=== PATIENT | male | born 1950 | race Caucasian/White ===

== ENCOUNTER 2016-11-22 15:18 | Emergency (ER) | payer OTHER ==
[~2016-11-22] VITALS: Ht 179.1 cm; Wt 97.5 kg
[2016-11-22] MEDS ORDERED: FISH OIL 1,0001 EAC2 PO (16:11)
[2016-11-22] MEDS ORDERED: ASPIRIN EC81 M1 PO (16:11)
[2016-11-22] MEDS ORDERED: VITAMIN D2000 UNI1 PO (16:11)
[2016-11-22] MEDS ORDERED: POTASSIUM99 M1 PO (16:12)
[2016-11-22] MEDS ORDERED: CALCIUM CARBON600 M1 PO (16:12)
[2016-11-22] MEDS ORDERED: VITAMIN B-121000 MC3 PO (16:12)
[2016-11-22] MEDS ORDERED: MAGNESIUM400 M1 PO (16:12)
[2016-11-22] MEDS ORDERED: SAW PALMETTO450 M1 PO (16:13)
[2016-11-22] MEDS ORDERED: MULTI-DAY VITA1 EACH PO (16:13)
--- NOTE | 2016-11-22 17:09 | ED NOSE COMPLAINT ---
History of Present Illness General Chief Complaint: Epistaxis/Nasal Foreign Body Stated Complaint: "PROFUSE NOSEBLEED", DIFF BREATHING ALSO Source: patient, family, old records Exam Limitations: no limitations Vital Signs & Intake/Output Vital Signs & Intake/Output Vital Signs Date Time Temp Pulse Resp B/P Pulse O2 O2 Flow FiO2 Ox Delivery Rate 11/22 1521 97.1 79 16 202/109 98 Room Air Allergies Coded Allergies: latex (RASH 11/22/16) pollen extracts (UNKNOWN 11/04/15) Reconcile Medications Aspirin (Ecotrin*) 81 MG TABLET.DR 1 TAB PO DAILY HEART/BLOOD (Reported) Calcium (Elemental-Fr Calcarb) (Calcium Carbonate) (Unknown Strength) TABLET ( Unknown Dose) PO DAILY SUPPLEMENT (Reported) Cephalexin (Keflex) 500 MG CAPSULE 1 CAP PO TID nasal packing Cholecalciferol (Vitamin D3) (Vitamin D) (Unknown Strength) TABLET (Unknown Dose) PO DAILY SUPPLEMENT (Reported) Cyanocobalamin (Vitamin B-12) (Unknown Strength) TABLET (Unknown Dose) PO DAILY SUPPLEMENT (Reported) Magnesium Oxide (Magnesium) (Unknown Strength) CAPSULE (Unknown Dose) PO DAILY SUPPLEMENT (Reported) Multivitamin (Multi-Day Vitamins) 1 EACH TABLET 1 TAB PO DAILY SUPPLEMENT ( Reported) [place]-3/Dha/Epa/Fish Oil (Fish Oil 1,000 MG Softgel) (Unknown Strength) CAPSULE (Unknown Dose) PO DAILY SUPPLEMENT (Reported) Potassium Gluconate (Potassium) (Unknown Strength) TABLET (Unknown Dose) PO DAILY SUPPLEMENT (Reported) Saw [place] Fruit (Saw [place]) (Unknown Strength) CAPSULE (Unknown Dose) PO DAILY SUPPLEMENT (Reported) Tramadol HCl (Ultram) 50 MG TABLET 1-2 TAB PO Q6PRN PRN severe pain Triage Note: NOSE BLEED FOR OVER ONE HOUR. PT STATES HE DOES NOT TAKE ANY MEDS BUT DID TAKE ONE BABY ASA PRIOR TO HIS NOSE BLEED. Triage Nurses Notes Reviewed? yes Onset: Last week Duration: day(s):, continues in ED, intermittent Timing: recent history Injury Environment: home Severity: severe No Modifying Factors: none HPI: 1 week prior to admission patient is had episodic nose bleeding from the left nares. Prior to admission he had recurrent nose bleeding that stopped then recurred not stopped with pressure gauze. He denies fever chills nausea vomiting diarrhea abdominal pain chest pain shortness breath headache dysuria rash. Past History Travel History Traveled to [place] past 21 day No Medical History Any Pertinent Medical History? none Surgical History Surgical History: hernia repair-inguinal Psychosocial History What is your primary language Swiss Tobacco Use: Never used ETOH Use: denies use Illicit Drug Use: denies illicit drug use Family History Family History, If Any: MOTHER, , Age 50-60; Cause: Myocardial infarction. FATHER, , Age 60+; Cause: Lung cancer. Hx Contributory? No Review of Systems Review of Systems Constitutional: Reports: no symptoms. EENTM: Reports: see HPI, epistaxis. Respiratory: Reports: no symptoms. Cardiovascular: Reports: no symptoms. GI: Reports: no symptoms. Genitourinary: Reports: no symptoms. Musculoskeletal: Reports: no symptoms. Skin: Reports: no symptoms. Neurological/Psychological: Reports: no symptoms. Hematologic/Endocrine: Reports: no symptoms. Immunologic/Allergic: Reports: no symptoms. All Other Systems: Reviewed and Negative Physical Exam Physical Exam General Appearance: well developed/nourished, alert, awake, anxious, mild distress Head: atraumatic, normal appearance Eyes: Bilateral: normal appearance, PERRL, EOMI. Ears: Bilateral: canal normal, Tympanic normal. Nose: dried blood Mouth/Throat: normal mouth inspection, pharynx normal Neck: normal inspection, supple, full range of motion, no midline tenderness Cardiovascular/Respiratory: normal breath sounds, normal peripheral pulses, regular rate/rhythm, no respiratory distress Back: normal inspection, normal range of motion, no vertebral tenderness Neurologic/Psych: no motor/sensory deficits, awake, alert, oriented x 3, normal gait, normal mood/affect Skin: intact, normal color, warm/dry Progress Differential Diagnoses I considered the following diagnoses in my evaluation of the patient: Epistaxis sinusitis Plan of Care: Current Medications Sig/Bebe Start time Last Medication Dose Stop Time Status Admin Cephalexin 500 MG ONCE ONE 11/22 1714 UNVr (Keflex) 11/22 171 Initial ED EKG: none Departure Departure Time of Disposition: 1708 Disposition: HOME OR SELF CARE Condition: Stable Clinical Impression Primary Impression: Anterior epistaxis Referrals: VIRI HUBBARD,REESE Mcghee Call for ENT follow up. GAGE HUMMEL MD (PCP/Family) Additional Instructions: Packing removal 2 days. Departure Forms: Customer Survey General Discharge Information Prescriptions: Current Visit Scripts Cephalexin (Keflex) 1 CAP PO TID #5 CAP Tramadol HCl (Ultram) 1-2 TAB PO Q6PRN PRN severe pain #30 TAB Procedures Epistaxis/Nasal Foreign Body Status: bleeding Clots Cleared Nasal Passage: wall suction Nasal Drops Instilled: Bilateral: Jacobo-Synephrine. Ext Pressure/Nose Pinch (min): 15 Inspected With: otoscope Bleeding Site: Left Observe for Bleedin Hemostatic Nasal Balloon: Left: Inserted Anterior.
[2016-11-22] MEDS ORDERED: KEFLEX500 M1 PO (17:10)
[2016-11-22] MEDS ORDERED: ULTRAM50 M1 PO (17:11)
[2016-11-22 17:57] VITALS: BP 174/82
== END 2016-11-22 17:58 ==
LOC: ERH 15:18
DX: R04.0 Epistaxis (principal)

== ENCOUNTER 2016-11-23 22:01 | Emergency (ER) | payer OTHER ==
[~2016-11-23] VITALS: Ht 167.6 cm; Wt 113.4 kg
[~2016-11-23 22:01] MED LIST: ASPIRIN EC81 M1 PO; CALCIUM CARBON600 M1 PO; FISH OIL 1,0001 EAC2 PO; KEFLEX500 M1 PO; MAGNESIUM400 M1 PO; MULTI-DAY VITA1 EACH PO; POTASSIUM99 M1 PO; SAW PALMETTO450 M1 PO; ULTRAM50 M1 PO; VITAMIN B-121000 MC3 PO; VITAMIN D2000 UNI1 PO
--- NOTE | 2016-11-23 22:44 | ED CARDIAC/CP/PALPITATIONS ---
History of Present Illness General Chief Complaint: Chest Pain Stated Complaint: ARM NUMBNESS; SWEATS; CP Source: patient, family, old records Exam Limitations: no limitations Vital Signs & Intake/Output Vital Signs & Intake/Output Vital Signs Date Time Temp Pulse Resp B/P B/P Pulse O2 O2 Flow FiO2 Mean Ox Delivery Rate 11/24 0439 97.7 67 18 152/86 96 Room Air 11/24 0248 97.2 66 18 158/85 96 Room Air 11/24 0048 97.9 75 16 155/89 97 11/23 2306 Room Air 11/23 2211 97.3 71 18 161/96 97 Room Air ED Intake and Output 11/24 0000 11/23 1200 Intake Total Output Total Balance Patient 250 lb Weight Weight Reported by Patient Measurement Method Allergies Coded Allergies: latex (RASH 11/22/16) pollen extracts (UNKNOWN 11/04/15) Triage Note: PT TO TRIAGE WITH C/O AN EPISODE OF RIGHT SIDED CHEST PAIN 2/10, PT FELT WEAK AND TIRED, SKIN WAS CLAMMY, AND 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 HX OF HTN. PT WAS SEEN HERE IN ER YESTERDAY FOR HTN AND RHINNORRHEA, RHINO ROCKET IN PLACE. BP 161/96 IN TRIAGE. EKG DONE IN [facility] 70'S. Triage Nurses Notes Reviewed? yes (SUDDEN ONSET OFRIGHT ARM COLDN) HPI: 66 YEAR OLD male with sudden onset of right arm coldness x 1 hr, associated nausea, and a "teensy" bit of chest pain that felt like indigestion. Admits to feeling stressed out. He was here yesterday and had a nasal tampon placed for epistaxis. Reports high bp yesterday in the ED and also at home today. Now he states that the temperature in his right arm has come back to normal. (SIMON HUBBARD,MARCI) Reconcile Medications Amlodipine Besylate (Norvasc) 10 MG TABLET 1 TAB PO DAILY HIGH BLOOD PRESSURE Aspirin (Ecotrin*) 81 MG TABLET.DR 1 TAB PO DAILY HEART/BLOOD (Reported) Calcium (Elemental-Fr Calcarb) (Calcium Carbonate) (Unknown Strength) TABLET ( Unknown Dose) PO DAILY SUPPLEMENT (Reported) Cephalexin (Keflex) 500 MG CAPSULE 1 CAP PO TID nasal packing Cholecalciferol (Vitamin D3) (Vitamin D) (Unknown Strength) TABLET (Unknown Dose) PO DAILY SUPPLEMENT (Reported) Cyanocobalamin (Vitamin B-12) (Unknown Strength) TABLET (Unknown Dose) PO DAILY SUPPLEMENT (Reported) Magnesium Oxide (Magnesium) (Unknown Strength) CAPSULE (Unknown Dose) PO DAILY SUPPLEMENT (Reported) Multivitamin (Multi-Day Vitamins) 1 EACH TABLET 1 TAB PO DAILY SUPPLEMENT ( Reported) [place]-3/Dha/Epa/Fish Oil (Fish Oil 1,000 MG Softgel) (Unknown Strength) CAPSULE (Unknown Dose) PO DAILY SUPPLEMENT (Reported) Potassium Gluconate (Potassium) (Unknown Strength) TABLET (Unknown Dose) PO DAILY SUPPLEMENT (Reported) Saw [place] Fruit (Saw [place]) (Unknown Strength) CAPSULE (Unknown Dose) PO DAILY SUPPLEMENT (Reported) Tramadol HCl (Ultram) 50 MG TABLET 1-2 TAB PO Q6PRN PRN severe pain (GILMER HUBBARD,DESIRAE Lindsey) Past History Travel History Traveled to [place] past 21 day No Medical History Any Pertinent Medical History? 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 FATHER, , Age 60+; Cause: Lung cancer. Hx Contributory? Yes (MARCI MONTES MD) Review of Systems Review of Systems Constitutional: Denies: chills, fever. EENTM: Reports: no symptoms. Respiratory: Reports: no symptoms. Cardiovascular: Denies: chest pain. GI: Reports: nausea. Genitourinary: Reports: no symptoms. Musculoskeletal: Reports: no symptoms. Skin: Reports: no symptoms. Neurological/Psychological: Reports: see HPI (DIZZY). Hematologic/Endocrine: Reports: bleeding. Immunologic/Allergic: Reports: no symptoms. All Other Systems: Reviewed and Negative (MARCI MONTES MD) Physical Exam Physical Exam General Appearance: well developed/nourished, alert, awake, anxious Head: atraumatic, normal appearance Eyes: Bilateral: normal appearance, PERRL, EOMI. Ears, Nose, Throat: LEFT NASAL TAMPON Neck: normal inspection, supple, full range of motion Respiratory: normal breath sounds, chest non-tender, no respiratory distress Cardiovascular: regular rate/rhythm Peripheral Pulses: 2+ radial (R), 2+ radial (L) Gastrointestinal: normal bowel sounds, soft, non-tender Extremities: normal inspection, normal range of motion, no edema Neurologic/Psych: no motor/sensory deficits, awake, alert, oriented x 3 Skin: intact, normal color, warm/dry Core Measures ACS in differential dx? Yes Severe Sepsis Present: No Septic Shock Present: No (MARCI MONTES MD) Progress Differential Diagnosis: AMI, aortic dissection, costochondritis, musculoskeletal pain, myocarditis, pericarditis, pneumonia, pneumothorax, pulmonary embolism, PUD/GERD, unstable angina Plan of Care: Orders Procedure Date/time Status TROPONIN LEVEL 11/24 329 Complete EKG 11/24 329 Active TROPONIN LEVEL 11/23 2254 Complete PARTIAL THROMBOPLASTIN TIME 11/23 2254 Complete PROTHROMBIN TIME 11/23 2254 Complete MAGNESIUM 11/23 2254 Complete COMPREHENSIVE METABOLIC PANEL 11/23 2254 Complete CBC WITHOUT DIFFERENTIAL 11/23 2254 Complete EKG 11/23 2201 Active Laboratory Tests 11/24/16 0342: Troponin I < 0.01 11/24/16 0028: Anion Gap 10, Estimated GFR > 60, BUN/Creatinine Ratio 16.7, Glucose 118 H, Calcium 8.8, Magnesium 2.0, Total Bilirubin 0.6, AST 25, ALT 33, Alkaline Phosphatase 84, Troponin I < 0.01, Total Protein 6.9, Albumin 3.8, Globulin 3.1, Albumin/Globulin Ratio 1.2 11/23/16 2317: PT 11.3, INR 1.08, APTT 29, CBC w Diff NO MAN DIFF REQ, RBC 4.99, MCV 88.8, MCH 30.2, RDW 14.6 H, MPV 7.9, Gran % 75.8 H, Lymphocytes % 16.7 L, Monocytes % 5.5, Eosinophils % 1.7, Basophils % 0.3, Absolute Granulocytes 6.6 H, Absolute Lymphocytes 1.5, Absolute Monocytes 0.5, Absolute Eosinophils 0.1, Absolute Basophils 0, PUBS MCHC 34.0 11/23/16 2256: Magnesium Cancelled Initial ED EKG: NSR Prior EKG: unchanged Hand-Off Endorsed To: GILMER HUBBARD,DESIRAE Lindsey Endorsed Time: 2325 Pending: labs (MARCI MONTES MD) Repeat EKG: unchanged (GILMER HUBBARD,DESIRAE Lindsey) Departure Departure Disposition: STILL A PATIENT Condition: Stable Clinical Impression Primary Impression: Chest pain Referrals: HUMMEL GAGE HUBBARD (PCP/Family) Departure Forms: Customer Survey General Discharge Information PA/PIN SORTER AND BAGGER Co-Sign Statement Statement: ED Attending supervision documentation- [X] I saw and evaluated the patient. I have also reviewed all the pertinent lab results and diagnostic results. I agree with the findings and the plan of care as documented in the PA's/PIN SORTER AND BAGGER's documentation. [X] I have reviewed the ED Record and agree with the PA's/PIN SORTER AND BAGGER's documentation. [] Additions or exceptions (if any) to the PAs/PIN SORTER AND BAGGER's note and plan are summarized below: [] (MARCI MONTES MD) Departure Prescriptions: Current Visit Scripts Amlodipine Besylate (Norvasc) 1 TAB PO DAILY #30 TAB Comments 11/24/16, 1:57am... troponin negative.... discussed at length with patient... will check 2nd troponin at 3:30. pt asymptomatic throughout. 11/24/16, 4:54am... troponin #2 negative, ekg#2 benign... pt comfortable in ED throughout without chest pain... pt safe for discharge with follow up by scientific software developer/vascular surgeon/ENT. (GILMER HUBBARD,DESIRAE Lindsey) Critical Care Note Critical Care Note Critical Care Time: non-applicable (MARCI MONTES MD)
[2016-11-23 23:25] LABS: ABSOLUTE BASOPHIL COUNT 0 /CUMM (0.0-0.2); ABSOLUTE EOSINOPHIL COUNT 0.1 /CUMM (0.0-0.7); ABSOLUTE GRANULOCYTE CT 6.6 /CUMM (1.4-6.5); ABSOLUTE LYMPH COUNT 1.5 /CUMM (1.2-3.4); ABSOLUTE MONOCYTE COUNT 0.5 /CUMM (0.10-0.60); BASOPHIL % 0.3 % (0.0-2.0); EOSINOPHIL % 1.7 % (0-5); GRANULOCYTE % 75.8 % (42.2-75.2); HEMATOCRIT 44.3 % (42-52); MEAN CORPUSCULAR HGB 30.2 PG (27.0-31.0); MEAN CORPUSCULAR VOLUME 88.8 FL (80.0-94.0); MEAN PLATELET VOLUME 7.9 FL (7.4-10.4); PLATELET COUNT 208 /CUMM (130-400); RBC DISTRIBUTION WIDTH 14.6 % (11.5-14.5); RED BLOOD CELL CT 4.99 /CUMM (4.70-6.10); WHITE BLOOD CELL COUNT 8.7 /CUMM (4.8-10.8)
[2016-11-23 23:33] LABS: PT 11.3 SEC (9.4-12.5); PTT 29 SEC (25-37)
[2016-11-24] MEDS ORDERED: NORVASC10 M1 PO (04:36)
[2016-11-24 04:39] VITALS: BP 152/86
== END 2016-11-24 04:46 ==
LOC: ERH 22:01
PROVIDERS: Emergency Medicine
DX: R07.9 Chest pain, unspecified (principal); R11.0 Nausea
CPT/HCPCS: 93005; 93010